=== PATIENT | female | born 1970 | race Two or more races ===

== ENCOUNTER 2021-02-15 06:02 | Day surgery (SDC) | payer OTHER ==
[~2021-02-15 06:02] MED LIST: CARVEDILOL12.5 MG; CELEXA40 MG PO; CLARITIN10 M1 PO; OMEGA 3 1,0001 EACH PO; PEPCID AC20 MG PO; PRAMIPEXOLE E2.25 MG PO; PROTONIX20 MG PO; RESTORIL30 M1 PO; TROKENDI XR100 MG PO; [UNRECOGNIZED DRUG - OTHER]
[2021-02-15] MEDS ORDERED: DUI500 PO (10:35)
[2021-02-15] MEDS ORDERED: ULTRAM50 MG PO (10:35)
== END 2021-02-15 16:46 | disposition home or self-care (01) ==
LOC: CIR.AMB 06:02
PROVIDERS: ATTEND Orthopaedic Surgery Sports Medicine
DX: S83.281A Other tear of lateral meniscus, current injury, right knee, initial encounter (principal); Z20.822 Contact with and (suspected) exposure to COVID-19